=== PATIENT | female | born 1945 | race Caucasian/White ===

== ENCOUNTER → 2017-12-22 | Outpatient (CLI) | payer OTHER ==
[~2017-12-22] MED LIST: BENAZEPRIL HCL20 MG PO; CELEBREX 200 M200 M1 PO; DEPAKOTE ER500 MG PO; HYDROCODONE-AP1 EAC6 PO; HYDROCODONE-AP1 EACH PO; LEVAQUIN 500 M500 M2 PO; LOPRESSOR25 PO; LOTREL 10-20 M1 EACH PO; NEURONTIN 300300 M1 PO; OCUVITE SOFTGE1 EAC1 PO; PRAVACHOL40 MG PO; PREDNISONE 10 M10 M1 PO; PRILOSEC40 MG PO; TOPROL XL25 MG PO
== END ==
LOC: M.RAD 14:10
DX: Z12.31 Encounter for screening mammogram for malignant neoplasm of breast (principal)

== ENCOUNTER 2018-06-17 07:58 | Inpatient (IN) | payer OTHER ==
[2018-06-10 09:32] LABS: ABSOLUTE BASOPHILS 0.1 thou/uL (0.0-0.2); ABSOLUTE EOSINOPHILS 0.1 thou/uL (0.0-0.7); ABSOLUTE LYMPHOCYTES 1.5 thou/uL (0.8-5.3); ABSOLUTE MONOCYTES 0.3 thou/uL (0.0-1.2); ABSOLUTE NEUTROPHILS 1.9 thou/uL (1.6-8.1); BASOPHILS 1.5 %; EOSINOPHILS 3.1 %; HEMATOCRIT 33.8 % (37.0-47.0); HEMOGLOBIN 10.7 gm/dL (12.0-15.0); LYMPHOCYTES 37.2 %; MCHC 31.7 g/dL (28.0-37.0); MCV 82.1 fL (80.0-100.0); MONOCYTES 8.9 %; MPV 7.6 fl. (7.2-11.1); NUCLEATED RBCS 0 /100WBC; PLATELET COUNT* 231 thou/uL (150-400); POLYS 49.3 %; RBC 4.12 mil/uL (4.20-5.00); RDW-CV 16.5 % (10.5-14.5); WBC 3.9 thou/uL (4.0-11.0)
[2018-06-10 09:48] LABS: ALBUMIN 3.7 g/dL (3.4-5.0); CALCIUM 9.4 mg/dL (8.5-10.1); CREATININE 0.8 mg/dL (0.6-1.3); POTASSIUM 4.2 mmol/L (3.5-5.1); TOTAL BILIRUBIN 0.3 mg/dL (<0.1-1.0); TOTAL PROTEIN 7.1 g/dL (6.4-8.2)
[2018-06-10 10:02] LABS: APTT 25.4 Seconds (25.0-31.3); PROTIME 10.1 Seconds (9.20-11.50)
[2018-06-10 11:12] LABS: ESR (SEDRATE) 10 mm/hr (0-30)
--- NOTE | 2018-06-10 17:49 | EKG ---
[place] [address] ELECTROCARDIOGRAM REPORT Name: ROHAN KAUFMAN Room: PRE IN [facility].#: [id number] Admission: Attend Phys: Yolanda Cohen Discharge: Date of : 43 Report #: [id number] THIS REPORT FOR: //name// [facility] Test Date: 2018-06-10 Test Time: 09:42:32 Pat Name: ROHAN KAUFMAN Department: Room: Gender: F Service Director: : 1945 Requested By: Simon Soto Order Number: [id number] Reading MD: Hansel Rodriguez Measurements Intervals [place] Rate: 58 P: -11 PA: 168 QRS: -44 QRSD: 99 T: -18 QT: 412 QTc: 405 Interpretive Statements Sinus rhythm Left anterior fascicular block Anterior Q waves, 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
[~2018-06-17] VITALS: Ht 154.9 cm; Wt 70.3 kg
--- NOTE | ~2018-06-17 | OP ---
[address] [address] OPERATIVE REPORT Name: ROHAN KAUFMAN Room: [address] IN M.R.#: [id number] Admission: 06/24/18 Attend Phys: Yolanda Cohen Discharge: Date of : 43 Report #: [id number] THIS REPORT FOR: //name// CC: Hans Stevens DICTATED BY: Scott Soni DO DATE OF SERVICE: 06/24/2018 PREOPERATIVE DIAGNOSIS: Left shoulder rotator cuff arthropathy with degenerative joint disease. POSTOPERATIVE DIAGNOSIS: Left shoulder rotator cuff arthropathy with degenerative joint disease. PROCEDURE: Left reverse total shoulder arthroplasty utilizing the Tornier system with the following components: 1. A 25 mm diameter x 38 mm length threaded post baseplate. 2. Centered glenoid sphere, 36 mm diameter, cobalt chrome. 3. Long size 3B humeral stem. 4. Reversed eccentric tray, +6 mm thickness. 5. Reversed polyethylene insert, 9 mm thickness, 36 mm diameter. 6. A 20 mm and 26 mm locking screws for glenoid baseplate. SURGEON: Hans Lorenz DO SLITTER CUT OFF OPERATOR: Scott Soni DO ANESTHESIA: General. ANTIBIOTICS: 600 mg clindamycin IV preoperatively. ESTIMATED BLOOD LOSS: 50 mL. DRAINS: None. SPECIMENS: None. COMPLICATIONS: None. DISPOSITION: Stable to PACU and will be admitted to the hospital for standard postoperative care. INDICATIONS FOR SURGICAL PROCEDURE: The patient is a pleasant 72-year-old [address] [address] OPERATIVE REPORT Name: MANDEEPBELKYS Room: [address] IN [facility].#: [id number] Admission: 06/24/18 Attend Phys: Yolanda Cohen Discharge: Date of : 43 Report #: [id number] female who was seen multiple times in [facility] with chronic complaints of left shoulder pain. On radiograph, she was found to have advanced degenerative joint disease changes of her left shoulder with evidence of a high riding humeral head consistent with rotator cuff pathology and rotator cuff arthropathy. The patient's pain was refractory to conservative measures and it was greatly impacting her quality of life. We recommended proceeding with a left shoulder reverse arthroplasty. Risks, benefits, complication, indication, and alternative treatments were discussed and the patient wished to proceed with surgery today. DESCRIPTION OF PROCEDURE: The patient was seen in preoperative holding area. Correct operative site, left shoulder was initialed. The patient was taken back to the operating suite, placed in supine position on the T-max operating table, given benefit of general anesthetic and then was positioned in the standard beach chair position with roughly 60 degrees elevation of her upper body. She had a well-padded facemask applied in the usual fashion. All bony prominences were well padded. Left shoulder was then prepped and draped in typical fashion. Surgery began after timeout identifying correct patient, correct procedure, correct operative site, preoperative antibiotics and correct performing surgeon. Next, a standard deltopectoral approach was performed. Incision was made starting just lateral to the coracoid process extending down the deltopectoral groove to the left upper arm region. Skin incision was roughly 8 cm in length. Skin and subcutaneous tissues were sharply dissected. Remainder of subcutaneous tissues was incised utilizing electrocautery and subcutaneous bleeders were cauterized at this point. Dissection was taken down to deltoid fascia. A medial dissection was carried out just superficial to the deltoid and pectoralis major fascia. We identified the fat stripe and the cephalic vein. Dissection was carried proximally. We were able to find our deltopectoral interval proximally, was developed distally down to the pectoralis major tendon insertion. Cephalic vein was protected throughout the case and taken laterally. The upper 1.5 cm of the pectoralis major tendon was incised utilizing electrocautery. The clavipectoral fascia just on the lateral border of the conjoined tendon was incised utilizing electrocautery. The three sisters, anterior circumflex artery and the accompanying veins were visualized. They were cauterized when performing our subscapularis peel. We found our biceps tendon distally just above the insertion of our pectoralis major tendon. This was followed proximally into the rotator interval and biceps tendon was released by performing effectively a tenotomy. Next, our subscapularis was peeled off of our lesser tuberosity in normal fashion utilizing electrocautery, was peeled directly off the bone releasing capsule as well roughly 1.5-2 cm inferior of the anatomic neck on to the shaft of the humerus while progressively externally rotating the left upper extremity, exposing the articular surface of the humerus. Shoulder was able to be dislocated once her subscapularis and inferior capsule were released. We then placed our normal retractors. We had good exposure to the proximal humerus. We inserted our canal finder and our proximal [address] [address] OPERATIVE REPORT Name: ROHAN KAUFMAN Room: [address] IN M.R.#: [id number] Admission: 06/24/18 Attend Phys: Yolanda Cohen Discharge: Date of : 43 Report #: [id number] humerus cutting guide. This was placed at roughly 30 degrees of retroversion. From where the guide sat at the anatomic neck, we did resect roughly a 2-3 mm of extra proximal humerus bone. The cut was performed in a freehand fashion, again roughly 30 degrees of retroversion. We then sequentially broached our proximal humerus for our humeral stem up to the previously mentioned size. A trial humeral stem was left in place. We then turned our attention to our glenoid preparation. Utilizing the normal retractors one posteriorly and one anteriorly to the glenoid, we were able to expose the glenoid appropriately. Surrounding soft tissue around the rim of the glenoid including the labrum was excised utilizing electrocautery. Inferior capsular release was performed on the inferior aspect of the glenoid staying directly on bone as not to injure the axillary nerve. We had great visualization of our glenoid. Our central guide pin was placed with the normal targeting device with a roughly 10 degree inferior tilt. It was placed in a just inferior to center position. We then reamed over our guide pin and drilled over the guide pin in the normal fashion. We measured it to be roughly 30 mm for our central screw of our glenoid baseplate. Glenoid baseplate was screwed into position, had great bite and great fixation. We then placed two screws, one superior and one more inferior, in the normal fashion through our glenoid baseplate. Next, we placed our glenosphere in the normal fashion. This was secured into the glenoid baseplate with a typical screw and also impacted and tightened once again in the normal fashion. Next, attention was turned back to the proximal humerus. We attached our trial +6 mm and eccentrically placed humeral tray to provide appropriate coverage of our proximal humerus and then trialed multiple polyethylene spacers ranging from a 6 mm thickness to a 9 mm thickness. We felt that we had appropriate tension of our conjoined tendon and appropriate tension on the soft tissues of the shoulder with the 9 mm polyethylene spacer. She had full passive range of motion with flexion and extension and good external and internal rotation as well as abduction. We therefore felt that we should go with these final components. The shoulder was dislocated and the trial components from the humeral side were removed. Thorough irrigation was performed to the proximal humerus. The final humeral stem and humeral tray were impacted into the appropriate position on the back table and then were impacted into appropriate position in the proximal humerus utilizing our 30-degree retroversion guide to place this stem in 30 degrees of retroversion as normally prepared. Next, we placed our final 9 mm polyethylene insert on our humeral tray, this was impacted in place. We performed final reduction of our shoulder and it was again taken throughout range of motion, had essentially full range of motion in all planes, had good stability throughout range of motion. No signs of subluxation or dislocation. Shoulder was thoroughly irrigated at this point. Subscapularis tendon was repaired back to the lesser tuberosity region with #2 FiberWire in a [id number] fashion, taking direct bony bites of our lesser tuberosity. Next, deltopectoral interval was loosely approximated with #1 Vicryl suture in a [id number] fashion. Subcutaneous tissues were closed in a simple inverted fashion with 2-0 Vicryl suture. A running 3-0 subcuticular Stratafix suture was performed. Dermabond was applied to the skin. Standard dressings were applied [address] [address] OPERATIVE REPORT Name: ROHAN KAUFMAN Room: [address] IN M.R.#: [id number] Admission: 06/24/18 Attend Phys: Yolanda Cohen Discharge: Date of : 43 Report #: [id number] consisting of Mepilex and a sling. The patient was weaned from general anesthetic, transferred in stable condition to the PACU. All sponge and needle counts were correct x 2. By: [id number] Lorenz DO /deepa
[~2018-06-17 07:58] MED LIST changes: +PRILOSEC 20 MG20 MG PO; -PRILOSEC40 MG PO
[2018-06-24 07:11] VITALS: BP 145/65
[2018-06-24 13:00] VITALS: BP 120/49
[2018-06-24 15:05] LABS: HEMATOCRIT 33.5 % (37.0-47.0); HEMOGLOBIN 10.4 gm/dL (12.0-15.0); MCH 25.3 pg (26.0-34.0); MCV 81.6 fL (80.0-100.0); MPV 8.2 fl. (7.2-11.1); NUCLEATED RBCS 0 /100WBC; PLATELET COUNT* 232 thou/uL (150-400); RDW-CV 16.7 % (10.5-14.5); WBC 12.4 thou/uL (4.0-11.0)
[2018-06-24 15:22] LABS: ALBUMIN 3.4 g/dL (3.4-5.0); CALCIUM 9.3 mg/dL (8.5-10.1); CREATININE 1.1 mg/dL (0.6-1.3); POTASSIUM 4.3 mmol/L (3.5-5.1); TOTAL BILIRUBIN 0.3 mg/dL (<0.1-1.0); TOTAL PROTEIN 6.8 g/dL (6.4-8.2)
[2018-06-24 16:16] LABS: ABSOLUTE LYMPHOCYTES 0.5 thou/uL (0.8-5.3); ABSOLUTE MONOCYTES 0.1 thou/uL (0.0-1.2); ABSOLUTE NEUTROPHILS 11.8 thou/uL (1.6-8.1); PLATELET ESTIMATE ADEQUATE
[2018-06-24 16:21] VITALS: BP 124/49
--- NOTE | 2018-06-24 17:31 | NUR ---
ALERT AND ORIENTED X4. UP WITH MIN ASSIST TO THE BATHROOM. IV IS PATENT AND INFUSING. LEFT ARM IN SLING, NWB TO LUE HAS BEEN MAINTAINED SINCE ARRIVING ON UNIT. DENIES NEED FOR PAIN MEDICATION SINCE ARRIVING TO UNIT. DENIES NAUSEA. TOLERATING DIET. VSS ON ROOM AIR. CONTINUOUS PULSE OX IN PLACE. HOURLY ROUNDS HAVE BEEN MAINTAINED THROUGHOUT SHIFT. CALL LIGHT IS WITHIN REACH. NURSING WILL CONTINUE TO MONITOR.
[2018-06-24 20:00] VITALS: BP 119/49
[2018-06-25] VITALS (7 sets, daily range): BP systolic 104–115; BP diastolic 32–55
[2018-06-25 05:06] LABS: HEMATOCRIT 28.8 % (37.0-47.0); HEMOGLOBIN 9.2 gm/dL (12.0-15.0); MCH 26.3 pg (26.0-34.0); MCHC 32.2 g/dL (28.0-37.0); MCV 81.8 fL (80.0-100.0); MPV 8.4 fl. (7.2-11.1); RBC 3.52 mil/uL (4.20-5.00); RDW-CV 16.4 % (10.5-14.5)
--- NOTE | 2018-06-25 05:12 | NUR ---
PT A&Ox4. STAND BY ASSIST. VITALS STABLE. O2 STATS IN 90s THROUGHOUT SHIFT ON RA. POLAR PACK ON. DRESSING CLEAN, DRY AND INTACT. SLING IN PLACE. IV ABX STARTED. IV IN R HAND PATENT, INFUSING. FALL PRECAUTIONS IN PLACE. CALL LIGHT WITHIN REACH. HOURLY ROUNDING COMPLETE. WILL CONTINUE TO MONITOR.
[2018-06-25 05:36] LABS: POTASSIUM 4.5 mmol/L (3.5-5.1)
[2018-06-25 06:26] LABS: % SATURATION 11 % (20-39); IRON 43 ug/dL (50-175)
--- NOTE | 2018-06-25 06:29 | NUR ---
I agree with Christ NATIONtake out waitress and charting. Patient is sleeping well at this time.
[2018-06-25] MEDS ORDERED: ELIQUIS5 MG PO (12:37)
[2018-06-25] MEDS ORDERED: SENNA S TABLET1 EACH PO (12:38)
[2018-06-25] MEDS ORDERED: OXYCODONE HCL 55 MG PO (12:39)
[2018-06-25] MEDS ORDERED: HYDROCODON-ACE1 EAC7 PO (12:39)
--- NOTE | 2018-06-25 13:52 | NUR ---
WOLFAnh LEFT UNIT AT 1352. ALERT AND OREINTED X4. UP STAND BY ASSIST DURING AMBULATION. PAIN BEING MANAGED WITH PO PAIN MEDICATION. DENIES NAUSEA. TOLERATING DIET. ATTENDED THERAPY THIS AM. SLING IN PLACE, POLAR CARE IN PLACE. NWB STATUS HAS BEEN MAINTAINED THROUGHOUT SHIFT. ALL PERSONAL ITEMS LEFT WITH PATIENT DISCHARGE INSTRUCTIONS, PRESCRIPTIONS AND NEW MEDICATION INFORMATION SENT WITH PATIENT. VSS ON ROOM AIR. HOURLY ROUNDS HAVE BEEN MAINTAIEND THROUGHOUT SHIFT. LEFT WITH DAUGHTER VIA CAR.
== END 2018-06-25 13:52 | disposition home or self-care (01) | DRG 483 ==
LOC: M.PRE 07:58 → M.TBA 06-24 06:32 → M.ORTHSURG 06-24 06:32 → M.PRE 06-24 10:05 → M.ORTHSURG 06-24 12:12 → M.PRE 06-24 14:40 → M.ORTHSURG 06-25 13:52
PROVIDERS: Family Medicine; Orthopaedic Surgery; ADMIT Internal Medicine
PROC: 0RRK00Z Replacement of Left Shoulder Joint with Reverse Ball and Socket Synthetic Substitute, Open Approach (ICD-10-PCS; principal; 2018-06-24)
DX: M75.102 Unspecified rotator cuff tear or rupture of left shoulder, not specified as traumatic (principal); M19.012 Primary osteoarthritis, left shoulder; I10 Essential (primary) hypertension; G40.909 Epilepsy, unspecified, not intractable, without status epilepticus; K21.9 Gastro-esophageal reflux disease without esophagitis; M06.9 Rheumatoid arthritis, unspecified; G89.29 Other chronic pain; M54.9 Dorsalgia, unspecified; D50.9 Iron deficiency anemia, unspecified; Z88.0 Allergy status to penicillin; Z88.8 Allergy status to other drugs, medicaments and biological substances; Z98.49 Cataract extraction status, unspecified eye; Z98.84 Bariatric surgery status; Z90.49 Acquired absence of other specified parts of digestive tract; Z90.710 Acquired absence of both cervix and uterus; Z79.899 Other long term (current) drug therapy

== ENCOUNTER 2019-02-02 11:24 | Emergency (ER) | payer OTHER ==
[~2019-02-02] VITALS: Ht 154.9 cm; Wt 71.2 kg
[~2019-02-02 11:24] MED LIST changes: +ELIQUIS5 MG PO; +HYDROCODON-ACE1 EAC7 PO; +OXYCODONE HCL 55 MG PO; +SENNA S TABLET1 EACH PO
[2019-02-02] MEDS ORDERED: FLEXERIL PO (11:42)
[2019-02-02] MEDS ORDERED: PERCOCET PO (13:08)
[2019-02-02] MEDS ORDERED: PREDNISONE 5 MG5 MG PO (13:08)
[2019-02-02 13:58] VITALS: BP 168/99
== END 2019-02-02 13:59 | disposition home or self-care (01) ==
LOC: M.ERS 11:24
DX: G62.9 Polyneuropathy, unspecified (principal); I10 Essential (primary) hypertension; M06.9 Rheumatoid arthritis, unspecified; K21.9 Gastro-esophageal reflux disease without esophagitis; Z90.49 Acquired absence of other specified parts of digestive tract; Z98.51 Tubal ligation status; Z90.710 Acquired absence of both cervix and uterus; Z79.899 Other long term (current) drug therapy; M19.90 Unspecified osteoarthritis, unspecified site

== ENCOUNTER → 2019-05-17 | Outpatient (CLI) | payer OTHER ==
[~2019-05-17] MED LIST changes: +FLEXERIL PO; +PERCOCET PO; +PREDNISONE 5 MG5 MG PO
== END ==
LOC: M.RAD 13:07
DX: M17.12 Unilateral primary osteoarthritis, left knee (principal); M85.88 Other specified disorders of bone density and structure, other site

== ENCOUNTER → 2019-08-31 | Outpatient (CLI) | payer OTHER ==
[~2019-08-31] MED LIST changes: +AZITHROMYCIN 2250 MG PO; +CEFDINIR300 MG PO; +MUCINEX600 MG PO; +PREDNISONE 20 M20 MG PO
== END ==
LOC: M.RAD 08-26 16:15
DX: Z12.31 Encounter for screening mammogram for malignant neoplasm of breast (principal); M81.0 Age-related osteoporosis without current pathological fracture; E28.39 Other primary ovarian failure

== ENCOUNTER → 2020-11-26 | Outpatient (CLI) | payer OTHER | LOC: M.CT 12:49 | PROVIDERS: ATTEND Pain Medicine Interventional Pain Medicine | DX: M43.16 Spondylolisthesis, lumbar region (principal); M47.814 Spondylosis without myelopathy or radiculopathy, thoracic region; M85.88 Other specified disorders of bone density and structure, other site; M43.8X4 Other specified deforming dorsopathies, thoracic region; M51.36 Other intervertebral disc degeneration, lumbar region; M48.061 Spinal stenosis, lumbar region without neurogenic claudication; M41.85 Other forms of scoliosis, thoracolumbar region; M48.04 Spinal stenosis, thoracic region; G89.4 Chronic pain syndrome; Z45.1 Encounter for adjustment and management of infusion pump ==